=== PATIENT | female | born 1950 | race Caucasian/White ===

== ENCOUNTER 2017-10-31 13:20 | Emergency (ER) | payer MEDICARE, MEDICAID ==
[~2017-10-31] VITALS: Ht 162.6 cm; Wt 103.0 kg
[2017-10-31 13:32] VITALS: BP 165/80
--- NOTE | 2017-10-31 13:32 | NUR ---
PT AMBULATES W/ STEADY GAIT TO BED 11 AT THIS TIME.
--- NOTE | 2017-10-31 13:35 | NUR ---
66 YO F BIB SELF W/ C/O PULLING HER ABD MUSCLE YESTERDAY AT THE BUS STOP, STATES "I KNOW IT IS A HERNIA". STATES HER PAIN IS NOT BAD, JUST MINOR DISCOMFORT BUT SAYS IT IS 8/10. PT REPORTS THAT SHE WAS AT THE BUS STOP YESTERDAY AND WHEN STANDING UP, FELT A LITTLE "POP" AND THOUGHT IT WAS A PULLED MUSCLE. TODAY SHE IS SORE IN THE AREA BUT STATES YESTERDAY SHE FELT A "GOODNEWS BAY" TO THE AREA, NOW SHE FEELS A "BALL". PT A&O X 4. GCS 15. CMS INTACT. RR EVEN AND UNLABORED. LUNGS BILAT CLEAR. ABD SOFT, NON-TENDER. NO TRAUMA OR INJURY FELT TO THE AREA DESCRIBED AT THIS TIME. PT DENIES N/V/D, FEVER/CHILLS. ER MD LANDERS NOTIFIED. SAFETY PRECAUTIONS IN PLACE. PT NEEDS MET. WILL CONTINUE TO MONITOR.
[2017-10-31 14:26] VITALS: BP 165/80
== END 2017-10-31 14:27 | disposition home or self-care (01) ==
LOC: MED 13:20
DX: S76.011A Strain of muscle, fascia and tendon of right hip, initial encounter (principal); R10.31 Right lower quadrant pain; X58.XXXA Exposure to other specified factors, initial encounter; Y93.89 Activity, other specified; Y99.8 Other external cause status; Y92.89 Other specified places as the place of occurrence of the external cause
CPT/HCPCS: 99282

== ENCOUNTER 2021-09-23 09:21 | Emergency (ER) | payer MEDICARE, MEDICAID ==
[~2021-09-23] VITALS: Ht 167.6 cm; Wt 66.2 kg
[2021-09-23 09:29] VITALS: BP 158/76
[2021-09-23 11:00] LABS: BASOPHILS % (AUTO) 0.5 % (0.0-2.0); EOSINOPHILS # (AUTO) 0.2 K/uL (0-0.4); EOSINOPHILS % (AUTO) 2.4 % (0.0-4.0); HEMATOCRIT 35.5 % (36-48); HEMOGLOBIN 11.7 g/dL (12.0-16.0); LYMPHOCYTES % (AUTO) 14.2 % (20.5-51.1); MEAN CORPUSCULAR HEMOGLOBIN 28 pg (27-31); MEAN CORPUSCULAR HGB CONC 33 g/dL (33-37); MEAN CORPUSCULAR VOLUME 85.3 fL (80-94); MONOCYTES # (AUTO) 0.4 K/uL (0.8-1.0); MONOCYTES % (AUTO) 5.3 % (1.7-9.3); NEUTROPHILS # (AUTO) 5.5 K/uL (1.8-7.7); NEUTROPHILS % (AUTO) 77.6 % (42.2-75.2); PLATELET COUNT (AUTO) 387 K/uL (140-450); RED BLOOD CELL COUNT(AUTO) 4.15 MIL/uL (4.20-5.40); RED CELL DISTRIBUTION WIDTH 15.3 % (11.6-13.7); WHITE BLOOD COUNT (AUTO) 7.1 K/uL (4.8-10.8)
[2021-09-23 11:16] LABS: ALBUMIN 3.6 g/dL (3.4-5.0); ANION GAP 10.4 (8-16); CREATININE 0.7 mg/dL (0.6-1.3); MAGNESIUM 1.7 mg/dL (1.8-2.4); PHOSPHORUS 3.5 mg/dL (2.5-4.9); POTASSIUM 4.4 mmol/L (3.5-5.1); TOTAL BILIRUBIN 0.3 mg/dL (0.0-1.0)
[2021-09-23] MEDS ORDERED: NACL 0.9% 1,000 ML IV ONE (12:00)
[2021-09-23 13:21] VITALS: BP 127/56
== END 2021-09-23 13:21 | disposition home or self-care (01) ==
LOC: MED 09:21
DX: R25.1 Tremor, unspecified (principal); D64.9 Anemia, unspecified; E86.0 Dehydration; E83.42 Hypomagnesemia; I10 Essential (primary) hypertension; E78.5 Hyperlipidemia, unspecified; Z88.8 Allergy status to other drugs, medicaments and biological substances
CPT/HCPCS: 36415; 80053; 81002; 83690; 83735; 84100; 85025; 96360; 99283; J7030